=== PATIENT | female | born 1995 | race Caucasian/White ===

== ENCOUNTER 2017-02-22 15:20 | Emergency (ER) | payer OTHER ==
[2017-02-22 15:24] VITALS: BP 125/68; PULSE 126; TEMP 99; BMI 22.4
== END 2017-02-22 18:00 | disposition left against medical advice (07) ==
LOC: JER 15:20
DX: Z53.21 Procedure and treatment not carried out due to patient leaving prior to being seen by health care provider (principal)
CPT/HCPCS: 99281-25

== ENCOUNTER 2022-12-23 15:02 | Emergency (ER) | payer BC, OTHER ==
[2022-12-23 15:16] VITALS: BP 110/73; PULSE 89; RESP 20; TEMP 98.3; BMI 23.4
== END 2022-12-23 17:09 | disposition home or self-care (01) ==
LOC: JERFT 15:02
DX: R50.9 Fever, unspecified (principal); R09.3 Abnormal sputum; R07.0 Pain in throat; R07.9 Chest pain, unspecified; J98.8 Other specified respiratory disorders; B97.89 Other viral agents as the cause of diseases classified elsewhere
CPT/HCPCS: 71046-TC-FY; 93005; 93010; 99284-25